=== PATIENT | male | born 1985 | race Hispanic/Latino ===

== ENCOUNTER 2016-11-10 04:22 | Emergency (ER) | payer OTHER ==
[~2016-11-10] VITALS: Ht 172.7 cm; Wt 72.6 kg
[2016-11-10 05:36] VITALS: BP 134/84
== END 2016-11-10 05:37 | disposition home or self-care (01) ==
LOC: M ED 05:28
DX: S01.512A Laceration without foreign body of oral cavity, initial encounter (principal); W01.10XA Fall on same level from slipping, tripping and stumbling with subsequent striking against unspecified object, initial encounter; Y92.410 Unspecified street and highway as the place of occurrence of the external cause; Y93.01 Activity, walking, marching and hiking; Y99.8 Other external cause status